=== PATIENT | male | born 1955 | race American Indian/Alaskan Native ===

== ENCOUNTER 2016-08-01 01:06 | Emergency (ER) | payer OTHER, MEDICAID ==
[2016-08-01] MEDS ORDERED: VANCOMYCIN/NS 1 GM/250 ML 1 GM/250 ML BAG IV ONE (01:41)
[2016-08-01] MEDS ORDERED: NACL 0.9% 1000 ML 1,000 ML IV ONE ×3 (01:41→03:16)
[2016-08-01] MEDS ORDERED: MAXIPIME/NS 2 GM/100 ML 2 GM/100 ML BAG IV ONE (01:46)
[2016-08-01] MEDS ORDERED: TYLENOL PR ONE (01:47)
--- NOTE | 2016-08-01 01:47 | Emergency Department Report ---
ED Shortness of Breath HPI - General Stated Complaint: SEIZURE, ALTERED MENTAL STATUS Time Seen by Provider: 08/01/16 01:37 - History of Present Illness Initial Comments: 61-year-old male with history of stage IV lung cancer brought in by ambulance as notification for severe respiratory distress. History is provided by EMS and family is not present yet. When EMS arrived the patient was having severe respiratory distress, had seizure which is presumed to be hypoxic as the patient 's socks were low, was placed on her percent nonrebreather and a nasopharyngeal airway was placed. Upon arrival the patient is nonverbal, is moving his left upper and left lower extremity spontaneously but does not move his right side, is in severe respiratory distress and appears to be tiring out. Per EMS they had tried to discuss with the family and the hospice nurse about the patient's CODE STATUS on site but there was no code papers present and they were unclear about what the patient or the family's wishes were. EMS called a family member who states that they found a documentation that the patient is full code. Although the CODE STATUS was not completely clear, will assume that the patient is full code. Patient was intubated with RSI meds for airway protection and hypoxia. Patient is also found to be febrile and tachycardic with possible sepsis. After intubation patient did go to a run of V. tach but had a pulse in the spontaneously resolved while he placed defibrillator pads on the patient's chest. - Related Data Allergies Allergy/AdvReac Type Severity Reaction Status Date / Time No Known Allergies Allergy Unverified 08/14/13 12:13 ED Review of Systems ROS: Stated complaint: SEIZURE, ALTERED MENTAL STATUS Other details as noted in HPI ED Physical Exam - General Limitations: Altered Mental Status General appearance: lethargic - Head Head exam: Present: atraumatic - Eye Eye exam: Present: PERRL, other (initial left sided gaze deviation, resolved) - ENT ENT exam: Present: other (small amount of frothy sputum in oropharynx) - Neck Neck exam: Present: normal inspection - Respiratory Respiratory exam: Present: respiratory distress, rhonchi, other (unable to protect airway) - Cardiovascular Cardiovascular Exam: Present: normal rhythm, tachycardia - GI/Abdominal GI/Abdominal exam: Present: soft. Absent: distended, tenderness - Extremities Exam Extremities exam: Present: normal inspection - Back Exam Back exam: Present: normal inspection - Neurological Exam Neurological exam: Present: other (is not moving the right upper or lower extremity, will move the left upper and left lower extremity, initial gaze deviation to the left which resolved) - Skin Skin exam: Present: intact. Absent: rash ED Course Vital Signs 08/01/16 08/01/16 08/01/16 01:06 01:10 01:40 Temperature 100.6 F H 102.1 F H Pulse Rate 133 H 123 H 124 H Respiratory 21 22 Rate Blood Pressure 112/72 130/81 Blood Pressure 98/76 [Left] O2 Sat by Pulse 95 95 95 Oximetry 08/01/16 08/01/16 04:42 04:45 Temperature 99.4 F Pulse Rate 99 H 100 H Respiratory 18 Rate Blood Pressure 104/55 Blood Pressure 97/62 [Left] O2 Sat by Pulse 96 97 Oximetry - Reevaluation(s) Reevaluation #1: 08/01/16 02:15 Versed 5 given as the patient is attempting to remove the tube was left arm, left arm restraint also placed. Fentanyl drip has also been started. At this time the family is present at bedside which with the daughters and one of the daughters and is on the phone.I had a arnulfo discussion with the family about the patient's poor prognosis and I discussed with him the importance of having a CODE STATUS at this time. Family is having a discussion amongst themselves and I will reassess and see what they prefer. - Consultations Consultation #1: 08/01/16 05:23 Spoke to the physician at the [facility], looked up the patient's records and states that the patient does have a history of 9 mm metastatic lesion in the left frontal lobe, not on any anticoagulation or antiplatelets while he was at the [facility]. Consultation #2: 08/01/16 05:23 Spoke to the neuro critical care attending at [facility]. States that they will accept transfer of the patient. - Intubation Time Out Performed: No Sedative: Etomidate Mg Given: 20 Paralytic: Rocuronium Mg Given: 40 Laryngoscope: Maria Luisa Size: 3 ET Tube Size: 7 Tube Secured Depth (cm): 24 Tube Secured Location: lips Tube Placement Confirmation: visualized tube passing t, equal breath sounds bilat, confirmation by capnometr Intubation Complications: other (initial attempt with Glidescope was unsuccessful, although the cords were visualized the tube would not pass through at the angle created by the glidescope, smaller tube 7 mm was used on Natanael attempt with direct laryngoscopy was successful) ED Medical Decision Making - Lab Data Result diagrams: 08/01/16 01:49 08/01/16 01:49 - Medical Decision Making Please see HPI Chest x-ray shows the tube is in place, there is a large mass in the chest presumably part of the patient's lung cancer Labs show elevated lactic acid, blood culture and urine culture was sent, [place], antibiotics were started, Tylenol was given for the fever, 2 L normal saline given, repeat lactic acid ordered CT the head shows a left frontal hemorrhage, Critical Care Time: Yes Critical care time in (mins) excluding proc time.: 90 Critical care attestation.: If time is entered above; I have spent that time in minutes in the direct care of this critically ill patient, excluding procedure time. ED Disposition Clinical Impression: Nontraumatic intracranial hemorrhage Sepsis Qualifiers: Sepsis type: sepsis due to unspecified organism Qualified Code(s): A41.9 - Sepsis, unspecified organism Disposition: DC/TX ANOTHER TYPE HEALTHCARE Is pt being admited?: No Does the pt Need Aspirin: No Condition: Critical Referrals: PRIMARY CARE, [Primary Care Provider] - 3-5 Days
[2016-08-01] MEDS ORDERED: fentaNYL DRIP Premix 2,000 MCG/100 ML BAG IV SCH (02:00)
[2016-08-01 02:21] LABS: Bilirubin,Urine NEG (Negative); Blood,Urine NEG (Negative); Ketones,Urine NEG (Negative); Leukocyte Esterase,Urine NEG (Negative); Mucus,Urine FEW /HPF; Nitrite,Urine NEG (Negative); Urobilinogen,Urine < 2.0 mg/dL (<2.0)
[2016-08-01 02:23] LABS: Basophils % (Auto) 0.1 % (0.0-1.8); Eosinophils % (Auto) 0.1 % (0.0-4.3); Hematocrit 43.2 % (35.5-45.6); Hemoglobin 13.8 gm/dl (11.8-15.2); Mean Corpuscular HGB Conc 32 % (32-34); Mean Corpuscular Hemoglobin 28 pg (28-32); Mean Corpuscular Volume 89 fl (84-94); Platelet Count 126 K/mm3 (140-440); Red Blood Count 4.88 M/mm3 (3.65-5.03); Red Cell Distribution Width 17.2 % (13.2-15.2); White Blood Count 15.2 K/mm3 (4.5-11.0)
[2016-08-01 02:35] LABS: INR 1.07 (0.87-1.13)
[2016-08-01 02:37] LABS: Partial Thromboplastin Time 26.7 Sec. (24.2-36.6)
[2016-08-01 02:52] LABS: Alanine Aminotransferase 16 units/L (7-56); Albumin 3.2 g/dL (3.9-5); Albumin/Globulin Ratio 1.1 %; Alkaline Phosphatase 121 units/L (35-129); Anion Gap 47 mmol/L; BUN/Creatinine Ratio 18.75; Blood Urea Nitrogen 15 mg/dL (9-20); Calcium 8.7 mg/dL (8.4-10.2); Carbon Dioxide 28 mmol/L (22-30); Glucose 321 mg/dL (75-100); Potassium 4.4 mmol/L (3.6-5.0); Sodium 154 mmol/L (137-145)
[2016-08-01] MEDS ORDERED: VERSED IV ONE ×2 (03:06→12:59)
[2016-08-01] MEDS ORDERED: MIDAZOLAM 100 MG in NACL 0.9% 80 ML IV SCH (04:00)
[2016-08-01] MEDS ORDERED: VERSED IV NR (04:00)
[2016-08-01 04:40] LABS: ISTAT Base Excess 3; ISTAT HCO3 28.5; ISTAT PCO2 51.9 (35-45); ISTAT PH 7.347 (7.35-7.45); ISTAT PO2 65 (80-105); ISTAT SO2 91; ISTAT TCO2 30
--- NOTE | 2016-08-01 04:59 | Cat Scan Report ---
FINAL REPORT PROCEDURE: CT HEAD/BRAIN WO CON TECHNIQUE: Computerized tomography of the head was performed without contrast material. HISTORY: seizure COMPARISON: No prior studies are available for comparison. FINDINGS: Skull and scalp: Normal. Paranasal sinuses: Normal. Ventricles and subarachnoid spaces: Normal. Cerebrum: There is a parenchymal hematoma in the left frontal lobe measuring 2.8 x 3.3 centimeters. There is surrounding edema. There is no significant mass effect. There is no midline shift.. Cerebellum and brainstem: No evidence of hemorrhage, acute infarction or mass. Vasculature: Normal. Comments: None. IMPRESSION: 2.8 x 3.3 centimeter left frontal intra-axial hemorrhage. There is no midline shift or herniation. Nurse Andrew Vasques was notified by telephone at 4:55 a.m..
[2016-08-01] MEDS ORDERED: KEPPRA 1,000 MG/NS 0.75% 100ML 1,000 MG/100 ML BAG IV ONE (05:12)
[2016-08-01 06:27] VITALS: BP 96/58
--- NOTE | 2016-08-01 08:28 | XRay Report ---
AP CHEST :08/01/16 01:06:00 CLINICAL: Post intubation. COMPARISON:None. FINDINGS: The endotracheal tube is in satisfactory position. Borderline cardiomegaly. Central vascular congestion with indistinct of the pulmonary vessels and bilateral perihilar reticular interstitial opacities. Pacer leads in the heart. A left [id number] tip is in the distal SVC. No airspace disease or pleural effusion. No pneumothorax. IMPRESSION: Satisfactory position of the endotracheal tube.CHF with bilateral perihilar pulmonary edema versus perihilar pneumonia.
[2016-08-01] MEDS ORDERED: ZEMURON IV ONE (12:59)
[2016-08-01] MEDS ORDERED: AMIDATE IV ONE (12:59)
== END 2016-08-01 07:23 | disposition other institution (70) ==
LOC: ED 01:06
DX: I62.9 Nontraumatic intracranial hemorrhage, unspecified (principal); A41.9 Sepsis, unspecified organism
CPT/HCPCS: 31500; 36415; 51702; 70450; 71010; 80053; 81001; 82140; 82803; 82962; 83735; 84484; 85025; 85610; 85730; 87040; 87086; 93005; 93010; 96365; 96366; 96367; 96368; 96375; 99291; 99292; J0692; J1953; J2250; J3010; J3370; J7030; 94002